=== PATIENT | female | born 1995 | race African-American/Black ===

== ENCOUNTER 2023-02-19 16:14 | Emergency (ER) | payer OTHER ==
--- NOTE | 2023-02-19 17:55 | ED ---
General Adult HPI <Devang Oreilly - Last Filed: 02/19/23 17:55> <Yasmin Pleitez - Last Filed: 02/20/23 04:08> - General Stated complaint: vaginal bleeding Time Seen by Provider: 02/19/23 20:11 - History of Present Illness Initial comments: 27-year-old female presenting to the ED with a chief complaint toe wound. Patient s/p vaginal 01/16/23. States had a vaginal tear. states that this was repaired however notes that site became painful and started bleeding today. (Devang Oreilly) Quick note reviewed: This is a 27-year-old -[place] female who presents to the emergency department with a chief complaint of postop problem. Patient reports that she had a vaginal delivery on 01/16 2023. She reports that she has stitches from a parking vaginal tear. She reports that after having a bowel movement she has had increased pain and bright red bleeding from the site. Her follow-up appointment with her primary SPACE TECHNOLOGIST this next week. She denies any dizziness, lightheadedness, fatigue, fever, chills. (Yasmin Pleitez) - Related Data Allergies Allergy/AdvReac Type Severity Reaction Status Date / Time No Known Allergies Allergy Verified 02/19/23 17:55 Review of Systems ROS Other: All systems not noted in ROS Statement are negative. <Devang Oreilly - Last Filed: 02/19/23 17:55> ROS Other: All systems not noted in ROS Statement are negative. <Yasmin Pleitez - Last Filed: 02/20/23 04:08> ROS Statement: Those systems with pertinent positive or pertinent negative responses have been documented in the HPI. General Exam Limitations: no limitations General appearance: alert, in no apparent distress Eye exam: Present: normal appearance Neck exam: Present: normal inspection Extremities exam: Present: normal inspection Back exam: Present: normal inspection Neurological exam: Present: alert, oriented X3 <Devang Oreilly - Last Filed: 02/19/23 17:55> <Yasmin Pleitez - Last Filed: 02/20/23 04:08> - General Exam Comments Initial Comments: General: Alert, in no acute distress Head: atraumatic normocephalic. Eyes PERRL, EOMI intact, mucous membranes moist Respiratory: Lungs clear to auscultation bilaterally Cardiovascular: Heart rate regular rate and rhythm Abdominal: Soft without guarding or rebound Extremities: Normal inspection with full range of motion and normal capillary refill Neuroogic: alert and oriented 3, CN II-XII intact, able to ambulate with steady gait Skin: warm dry and intact with normal color gu: External exam without rashes or lesions. Scant amount of bright red blood. Exam performed with HYACINTH castrejon present at bedside. (Yasmin Pleitez) Course Vital Signs 02/19/23 02/19/23 17:52 21:20 Temperature 98.5 F 98.1 F Pulse Rate 69 74 Respiratory 18 18 Rate Blood Pressure 121/84 121/70 O2 Sat by Pulse 99 99 Oximetry Medical Decision Making <Devang Oreilly - Last Filed: 02/19/23 17:55> <Yasmin Pleitez - Last Filed: 02/20/23 04:08> - Medical Decision Making Quicknote portion performed. Signed Devang Oreilly PA-C (Devang Oreilly) Was pt. sent in by a medical professional or institution ([facility], BULK LOADER, urgent care, hospital, or senior living...) When possible be specific @ -[No] Did you speak to anyone other than the patient for history (EMS, parent, family, police, friend...)? What history was obtained from this source @ -[No] Did you review nursing and triage notes (agree or disagree)? Why? @ -[I reviewed and agree with nursing and triage notes] Were old charts reviewed (outside hosp., previous admission, EMS record, old EKG, old radiological studies, urgent care reports/EKG's, senior living records)? Report findings @ -[No old charts were reviewed] Differential Diagnosis (chest pain, altered mental status, abdominal pain women, abdominal pain men, vaginal bleeding, weakness, fever, dyspnea, syncope, headache, dizziness, GI bleed, back pain, seizure, CVA, palpatations, mental health, musculoskeletal)? @ -[not applicable] EKG interpreted by me (3pts min.). @ -[As above] X-rays interpreted by me (1pt min.). @ -[None done] CT interpreted by me (1pt min.). @ -[None done] U/S interpreted by me (1pt. min.). @ -[None done] What testing was considered but not performed or refused? (CT, X-rays, U/S, labs)? Why? @ -[None] What meds were considered but not given or refused? Why? @ -[None] Did you discuss the management of the patient with other professionals (professionals i.e. Dr., PA, BULK LOADER, lab, RT, psych nurse, social work supervisor, fashion patternmaker, teacher, event security officer, rifle case repairer)? Give summary @ -[No] Was smoking cessation discussed for >3mins.? @ -[No] Was critical care preformed (if so, how long)? @ -[No] Were there social determinants of health that impacted care today? How? (Homelessness, low income, unemployed, alcoholism, drug addiction, transportation, low edu. Level, literacy, decrease access to med. care, nursing home, rehab)? @ -[No] Was there de-escalation of care discussed even if they declined (Discuss DNR or withdrawal of care, Hospice)? DNR status @ -[No] What co-morbidities impacted this encounter? (DM, HTN, Smoking, COPD, CAD, Cancer, CVA, ARF, Chemo, Hep., AIDS, mental health diagnosis, sleep apnea, morbid obesity)? @ -[None] Was patient admitted / discharged? Hospital course, mention meds given and route, prescriptions, significant lab abnormalities, going to OR and other pertinent info. @ -Discharged. This is a pleasant 27-year-old -[place] female who presents to the emergency department with a chief complaint of vaginal bleeding. Patient goes to physical exam performed. exam reveals scant amount of bright red blood in the vaginal vault. I discussed the results in detail with the patient verbalized understanding all questions addressed. She'll be di scharged condition. Encouraged to follow up with her SPACE TECHNOLOGIST in 3-5 days. Case discussed with Dr. Gaitan [facility] who presents after Undiagnosed new problem with uncertain prognosis? @ -[No] Drug Therapy requiring intensive monitoring for toxicity (Heparin, Nitro, Insulin, Cardizem)? @ -[No] Were any procedures done? @ -[No] Diagnosis/symptom? @ -Vaginal Bleeding Acute, or Chronic, or Acute on Chronic? @ -Acute Uncomplicated (without systemic symptoms) or Complicated (systemic symptoms)? @ -Uncomplicated Side effects of treatment? @ -[No] Exacerbation, Progression, or Severe Exacerbation? @ -[No] Poses a threat to life or bodily function? How? (Chest pain, [place], VA, pneumonia, PE, COPD, DKA, ARF, appy, cholecystitis, CVA, Diverticulitis, Homicidal, Suicidal, threat to staff... and all critical care pts) @ -Low likelihood (Yasmin Pleitez) Disposition <Devang Oreilly - Last Filed: 02/19/23 17:55> Is patient prescribed a controlled substance at d/c from ED?: No Time of Disposition: 21:18 <Yasmin Pleitez - Last Filed: 02/20/23 04:08> Clinical Impression: Vaginal bleeding, Post-op bleeding Disposition: HOME SELF-CARE Condition: Stable Additional Instructions: These monitor symptoms closely. Please return to the nearest emergency department if symptoms worsen or persist Referrals: Monika Lundberg FNPBC [Primary Care Provider] - 1-2 days
[2023-02-19 17:59] VITALS: RESP 18
[2023-02-19 21:26] VITALS: BP 121/70; PULSE 74; TEMP 98.1
== END 2023-02-19 21:22 | disposition home or self-care (01) ==
LOC: EC 16:14
DX: O72.1 Other immediate postpartum hemorrhage (principal)
CPT/HCPCS: 99283